=== PATIENT | female | born 1970 | race Caucasian/White ===

== ENCOUNTER 2020-02-14 08:03 | Outpatient (REF) | payer OTHER, SELFPAY ==
--- NOTE | 2020-02-14 08:17 | MR_ITS ---
EXAMINATION: MR BRAIN WITHOUT AND WITH CONTRAST CLINICAL INFORMATION: Tinnitus and vertigo on right side. COMPARISON: None. TECHNIQUE: Multiplanar, multisequential imaging was obtained without and with intravenous contrast. Intravenous contrast: Gadavist 7.5 mL. FINDINGS: No diffusion abnormality is seen. No brain parenchymal signal abnormality is seen. The ventricles are normal in size. No mass effect or midline shift is evident. No extra-axial fluid collections are noted. The brainstem and cerebellum are normal. On postcontrast imaging, there is no abnormal parenchymal or leptomeningeal enhancement. The VII and VIII cranial nerve complexes are normal in course and caliber. No signal abnormality is visualized within the inner ear structures on the precontrast axial T1-weighted sequence. Fluid signal is preserved within the cochlea, semicircular canals, and vestibule on the high-resolution axial FIESTA sequence. There is a thin amount of bone overlying the superior semicircular canal on the right side, for which the possibility of a subtle osseous dehiscence cannot be ruled out. No cerebellopontine angle lesion is noted. There is no abnormal labyrinthine or intracanalicular enhancement on postcontrast imaging. The craniovertebral junction, marrow signal, and midline structures are normal. The gradient refocused acquisition is normal. The visualized portions of the major intracranial flow voids at the level of the [place] are preserved. The dural venous sinus flow voids are maintained. The mastoid air cells and paranasal sinuses are well aerated. MR/MR head/brain wo/w con IMPRESSION: No retrocochlear pathology. Thin amount of bone overlying the right superior semicircular canal for which the possibility of a subtle osseous dehiscence cannot be ruled out. If clinically indicated, a CT scan of the temporal bones could be considered in follow-up. Otherwise, normal MRI of the brain.
== END 2020-02-14 08:04 | disposition home or self-care (01) ==
LOC: HO.MRI 08:03
PROVIDERS: PCP Internal Medicine; Visit Provider Otolaryngology
DX: H93.13 Tinnitus, bilateral (principal); R42 Dizziness and giddiness; D33.3 Benign neoplasm of cranial nerves
CPT/HCPCS: 70553